=== PATIENT | female | born 1930 | race Caucasian/White ===

== ENCOUNTER 2018-05-18 16:38 | Emergency (ER) | payer MEDICARE ==
[~2018-05-18] VITALS: Ht 152.4 cm; Wt 54.4 kg
[2018-05-18 16:45] VITALS: BP_SYST 98
[2018-05-18] MEDS ORDERED: DILTIAZEM HCL 25 MG/5 ML VIAL IVP ONE ×3 (17:00→20:30)
[2018-05-18 17:27] LABS: ANION GAP 9 (5-15); CALCIUM 9.3 mg/dL (8.4-11.0); CHLORIDE 92 mmol/L (98-107); CREATININE 1.63 mg/dL (0.55-1.30); GLUCOSE 279 mg/dL (70-99); POTASSIUM 4.4 mmol/L (3.5-5.1); SODIUM SERUM 125 mmol/L (136-145); UREA NITROGEN, BLOOD 67 mg/dL (8-21)
[2018-05-18 17:32] LABS: ALANINE AMINOTRANSFERASE 19 U/L (12-78); ALBUMIN 2.2 g/dL (3.4-4.8); AMYLASE 26 U/L (0-100); ASPARTATE AMINOTRANSFERASE 15 U/L (10-37); LACTATE DEHYDROGENASE 167 U/L (81-234); LIPASE 179 U/L (73-393); TOTAL BILIRUBIN 1.3 mg/dL (0.0-1.0)
[2018-05-18 17:33] LABS: BASOPHILS % (AUTO) 0.1 % (0.0-2.0); EOSINOPHILS % (AUTO) 0.1 % (0.0-4.0); HEMATOCRIT 38.9 % (36-48); HEMOGLOBIN 12.9 g/dL (12.0-16.0); LYMPHOCYTES # (AUTO) 0.3 K/uL (1.0-5.5); LYMPHOCYTES % (AUTO) 2.5 % (20.5-51.5); MEAN CORPUSCULAR HEMOGLOBIN 30 pg (27-31); MEAN CORPUSCULAR HGB CONC 33 % (32-36); MEAN CORPUSCULAR VOLUME 90 fL (79.0-98.0); MONOCYTES # (AUTO) 0.2 K/uL (0.0-1.0); MONOCYTES % (AUTO) 1.9 % (1.7-9.3); NEUTROPHILS # (AUTO) 10.1 K/uL (1.8-7.7); NEUTROPHILS % (AUTO) 95.4 % (40.0-70.0); PLATELET COUNT (AUTO) 164 K/uL (130-430); RED BLOOD CELL COUNT(AUTO) 4.35 MIL/uL (4.2-6.2); RED CELL DISTRIBUTION WIDTH 18.9 % (9.0-15.0); WHITE BLOOD COUNT (AUTO) 10.6 K/uL (4.8-10.8)
[2018-05-18] MEDS ORDERED: DILTIAZEM HCL 60 MG TABLET PO ONE (18:45)
[2018-05-18] MEDS ORDERED: NACL 0.9% 1,000 ML IV ONE (18:45)
[2018-05-18 19:13] LABS: PROTHROMBIN TIME 41.9 SECS (9.5-12.5)
[2018-05-18 19:15] LABS: INR 4.4 (0.8-1.2)
[2018-05-18] MEDS ORDERED: NS 500 ML IV ONE (20:15)
[2018-05-18 21:54] VITALS: BP_SYST 113
== END 2018-05-18 21:54 | disposition short-term general hospital (02) ==
LOC: SED 16:38
DX: I48.0 Paroxysmal atrial fibrillation (principal); K80.20 Calculus of gallbladder without cholecystitis without obstruction; R79.89 Other specified abnormal findings of blood chemistry; E11.9 Type 2 diabetes mellitus without complications
CPT/HCPCS: 36415; 71045; 74176; 80053; 82150; 82962; 83605; 83615; 83690; 83880; 84484; 85025; 85610; 85730; 93005; 96374; 96376; 99285; J3490; J7030; J7040